=== PATIENT | female | born 1940 | race Caucasian/White ===

== ENCOUNTER → 2016-12-18 | Outpatient (CLI) | payer MEDICARE, BC ==
[~2016-12-18] MED LIST: LEVO75TA10 PO; SIMV20TA6 PO; TELM40TA6 PO; [UNRECOGNIZED DRUG - CODE] PO CHEW
== END ==
LOC: IMA 12:54
PROVIDERS: ATTEND Internal Medicine Endocrinology, Diabetes & Metabolism
DX: E83.52 Hypercalcemia (principal); E28.39 Other primary ovarian failure; E55.9 Vitamin D deficiency, unspecified; Z87.828 Personal history of other (healed) physical injury and trauma